=== PATIENT | female | born 1930 | race Caucasian/White ===

== ENCOUNTER 2018-02-17 16:28 | Emergency (ER) | payer OTHER ==
[~2018-02-17] VITALS: Ht 172.7 cm; Wt 77.5 kg
[~2018-02-17 16:28] MED LIST: ASPIR 8181 M1 PO; ATORVASTATIN CA20 MG PO; HYDROXYZINE HCL10 MG PO; LISINOPRIL10 MG PO; LORADAMED10 MG PO; LORAZEPAM0.5 MG PO; PREDNISONE10 MG PO; SEROQUEL XR50 MG PO; TYLENOL REGULA325 MG PO; ZOLOFT50 MG PO
[2018-02-17 19:11] VITALS: BP 150/104
== END 2018-02-17 19:12 | disposition home or self-care (01) ==
LOC: EME 16:28
DX: Z00.00 Encounter for general adult medical examination without abnormal findings (principal); I10 Essential (primary) hypertension; M19.90 Unspecified osteoarthritis, unspecified site; F03.90 Unspecified dementia, unspecified severity, without behavioral disturbance, psychotic disturbance, mood disturbance, and anxiety; F34.1 Dysthymic disorder; Z79.82 Long term (current) use of aspirin
CPT/HCPCS: 99281; 99284

== ENCOUNTER 2018-02-18 08:24 | Emergency (ER) | payer OTHER ==
[~2018-02-18] VITALS: Ht 172.7 cm; Wt 75.8 kg
[2018-02-18 09:27] LABS: HEMATOCRIT 35.7 % (36.0-46.0); HEMOGLOBIN 11.7 G/DL (11.9-15.5); MCH 30.5 PG (29.0-34.0); MCHC 32.8 G/DL (30.0-36.0); MCV 93.2 FL (83-99); PLATELET COUNT 180 K/uL (156-360); RBC DIS.WIDTH-CV 12.9 % (11.8-14.6); RBC DIS.WIDTH-SD 43.8 % (39-53); RED BLOOD COUNT 3.83 M/uL (3.80-5.20); WHITE BLOOD COUNT 7.4 K/uL (4.1-10.2)
[2018-02-18 09:38] LABS: CHLORIDE 112 mEq/L (99-109); POTASSIUM 3.8 mEq/L (3.7-5.4); SODIUM 144 mEq/L (136-147)
[2018-02-18 09:40] LABS: GLUCOSE 111 mg/dL (70-99)
[2018-02-18 09:44] LABS: CREATININE 0.7 mg/dL (0.6-1.3); GFR ESTIMATE (CALCULATED) > 59 mL/min/
[2018-02-18 09:45] LABS: UREA NITROGEN (BUN) 33 mg/dL (9-23)
[2018-02-18 11:02] LABS: APPEARANCE SL.HAZY ((CLEAR)); BILIRUBIN NEGATIVE; BLOOD SMALL; COLOR YELLOW ((YELLOW)); GLUCOSE (STRIP) NEGATIVE; KETONES NEGATIVE; LEUKOCYTES SMALL; NITRITE POSITIVE; PROTEIN (STRIP) NEGATIVE; SPECIFIC GRAVITY 1.023 (1.000-1.030)
[2018-02-18 11:17] LABS: BACTERIA 4+ /HPF; EPITHELIAL CELLS 1+ /HPF; MUCUS NONE SEEN /LPF
[2018-02-18 11:18] LABS: CALCIUM OXALATE CRYSTALS RARE /HPF; HYALINE CASTS 0-5 /LPF
[2018-02-18 13:37] VITALS: BP 160/66
== END 2018-02-18 13:38 ==
LOC: EME 08:24
PROVIDERS: Physician Assistant
DX: S00.212A Abrasion of left eyelid and periocular area, initial encounter (principal); W18.30XA Fall on same level, unspecified, initial encounter; Y92.121 Bathroom in nursing home as the place of occurrence of the external cause; F03.90 Unspecified dementia, unspecified severity, without behavioral disturbance, psychotic disturbance, mood disturbance, and anxiety; I10 Essential (primary) hypertension; Z66 Do not resuscitate
CPT/HCPCS: 70450; 80048; 81003; 85027; 93005

== ENCOUNTER 2018-05-15 15:54 | Emergency (ER) | payer OTHER ==
[~2018-05-15] VITALS: Ht 152.4 cm; Wt 81.5 kg
[2018-05-15 18:40] VITALS: BP 176/72
== END 2018-05-15 18:27 | disposition home or self-care (01) ==
LOC: EME 15:54
DX: S42.292A Other displaced fracture of upper end of left humerus, initial encounter for closed fracture (principal); S42.212A Unspecified displaced fracture of surgical neck of left humerus, initial encounter for closed fracture; W19.XXXA Unspecified fall, initial encounter; M85.822 Other specified disorders of bone density and structure, left upper arm; M85.832 Other specified disorders of bone density and structure, left forearm; F03.90 Unspecified dementia, unspecified severity, without behavioral disturbance, psychotic disturbance, mood disturbance, and anxiety; R47.01 Aphasia; I10 Essential (primary) hypertension; Z79.82 Long term (current) use of aspirin
CPT/HCPCS: 73030; 73110; 99281; 99284

== ENCOUNTER 2018-06-07 17:15 | Emergency (ER) | payer OTHER ==
[~2018-06-07] VITALS: Ht 160 cm; Wt 74.9 kg
[2018-06-07 20:30] VITALS: BP 153/77
== END 2018-06-07 20:32 | disposition home or self-care (01) ==
LOC: EME 17:15
DX: S00.81XA Abrasion of other part of head, initial encounter (principal); W19.XXXA Unspecified fall, initial encounter; Y92.129 Unspecified place in nursing home as the place of occurrence of the external cause; F03.90 Unspecified dementia, unspecified severity, without behavioral disturbance, psychotic disturbance, mood disturbance, and anxiety; I10 Essential (primary) hypertension; M19.90 Unspecified osteoarthritis, unspecified site
CPT/HCPCS: 99281; 99284